=== PATIENT | male | born 1955 | race Caucasian/White ===

== ENCOUNTER 2020-01-30 09:40 | Inpatient (IN) | payer BC ==
[2020-01-30] VITALS (10 sets, daily range): BP systolic 116–133; BP diastolic 65–79
[~2020-01-30 09:40] MED LIST: RINGERS SOLUTION,LACTATED 1,000 ML IV ONE
[2020-01-30] MEDS ORDERED: BACITRACIN 50,000 UNITS/VIAL ONE (10:06)
[2020-01-30] MEDS ORDERED: FentaNYL CITRATE-PF 100 MCG/2 ML VIAL IVP PRN ×3 (10:15→12:45)
[2020-01-30] MEDS ORDERED: HYDROmorphone 2 MG/ML SYRINGE IVP PRN ×3 (10:15→14:45)
[2020-01-30] MEDS ORDERED: MEPERIDINE-PF 25 MG/ML VIAL IVP PRN (10:15)
[2020-01-30 10:31] LABS: INR 1.1 (0.9-1.1); PROTHROMBIN TIME 11.2 SEC (9.4-11.6)
[2020-01-30 10:32] LABS: GLUCOMETER DEV NAME(LOC) SDS.; GLUCOSE,POINT OF CARE 135 MG/DL (70-110)
[2020-01-30] MEDS ORDERED: MELA5TAB3 PO (10:46)
[2020-01-30] MEDS ORDERED: THIA100T80 PO (10:46)
[2020-01-30] MEDS ORDERED: ASCO500 PO (10:46)
[2020-01-30] MEDS ORDERED: MULT-248 PO (10:46)
[2020-01-30] MEDS ORDERED: ESCI-8 PO (10:46)
[2020-01-30] MEDS ORDERED: FOLI-130 PO (10:46)
[2020-01-30] MEDS ORDERED: FAMO20 PO (10:46)
[2020-01-30] MEDS ORDERED: ENOX40DI9 SQ (10:46)
[2020-01-30] MEDS ORDERED: ZINC220C14 PO (10:46)
[2020-01-30] MEDS ORDERED: DOCU-275 PO (10:46)
[2020-01-30] MEDS ORDERED: INSU100V39 SQ (10:46)
[2020-01-30] MEDS ORDERED: ONDA-104 PO (10:46)
[2020-01-30] MEDS ORDERED: CHOL100018 PO (10:46)
[2020-01-30] MEDS ORDERED: INSLAN SQ (10:46)
[2020-01-30] MEDS ORDERED: BUPIVACAINE LIPOSOME/PF 1.3%-13.3MG/ML SUSPENSION 20 ML VIAL INJ ONE (11:15)
[2020-01-30] MEDS ORDERED: BUPIVACAINE HCL/PF 0.25% 30 ML VIAL ONE (11:46)
[2020-01-30] MEDS ORDERED: GELATIN SPONGE,ABSORBABLE 100 MM TP ONE (12:18)
[2020-01-30] MEDS ORDERED: EPINEPHrine 1:1,000 [1 MG/ML] AMP ONE (12:26)
[2020-01-30] MEDS ORDERED: GELATIN SPONGE,ABSORBABLE 50 MM TP ONE (12:26)
[2020-01-30] MEDS ORDERED: LIDOCAINE 1%/EPI 1:200,000/PF 30 ML VIAL ONE (12:28)
[2020-01-30] MEDS ORDERED: LIDOCAINE 2%/EPI 1:200,000/PF 20 ML VIAL ONE (12:28)
[2020-01-30] MEDS ORDERED: SODIUM CHLORIDE 0.9% 1,000 ML ONE (12:52)
[2020-01-30] MEDS ORDERED: RINGERS SOLUTION,LACTATED 1,000 ML IV ONE (12:52)
[2020-01-30] MEDS ORDERED: TRANEXAMIC ACID 1,000 MG in DEXTROSE 5%-WATER 50 ML IV ONE (13:00)
[2020-01-30] MEDS ORDERED: SUGAMMADEX SODIUM 200 MG/2 ML VIAL IVP ONE (13:15)
[2020-01-30] MEDS ORDERED: OxyCODONE HCL/ACETAMINOPHEN 5-325 MG TABLET PO PRN (14:45)
[2020-01-30] MEDS ORDERED: ACETAMINOPHEN 325 MG TABLET PO PRN (18:00)
[2020-01-30] MEDS ORDERED: MORPHINE SULFATE 2 MG/ML SYRINGE IVP PRN (18:00)
[2020-01-30] MEDS ORDERED: DEXTROSE 50%-WATER 25 GM/50 ML SYRINGE IVP PRN (18:00)
[2020-01-30] MEDS ORDERED: OXYGEN THERAPY IH SCH (20:00)
[2020-01-30] MEDS: FAMOTIDINE 10 MG/ML 2 ML VIAL IVP SCH (20:26)
[2020-01-30] MEDS: OXYGEN THERAPY IH SCH (20:26)
[2020-01-30] MEDS: INSULIN LISPRO 100 UNITS/ML SQ PRN (20:38)
[2020-01-30] MEDS: DOCUSATE SODIUM 100 MG CAPSULE PO SCH (21:00)
[2020-01-30] MEDS ORDERED: SODIUM CHLORIDE 0.9% 500 ML IV ONE (21:25)
[2020-01-30] MEDS: CeFAZolin 2 GM/DEXTROSE 50 ML IV SCH (21:30)
[2020-01-30 22:59] LABS: BASOPHILS % (AUTO) 0.3 % (0.0-2.0); EOSINOPHILS % (AUTO) 1.2 % (1.0-6.0); HEMATOCRIT 34.4 % (41-53); LYMPHOCYTES # (AUTO) 1.5 K/uL (1.0-4.8); MEAN CORPUSCULAR HEMOGLOBIN 27.2 pg (26.0-34.0); MEAN CORPUSCULAR VOLUME 85 fL (80-100); MONOCYTES # (AUTO) 0.9 K/uL (0.1-1.0); MONOCYTES % (AUTO) 7.5 % (2.0-9.0); NEUTROPHILS # (AUTO) 8.9 K/uL (1.8-7.7); PLATELET COUNT (AUTO) 320 K/uL (150-450); RED BLOOD CELL COUNT(AUTO) 4.05 MIL/uL (4.50-5.90)
[2020-01-30 23:12] LABS: GLUCOMETER DEV NAME(LOC) 6S.1; GLUCOSE,POINT OF CARE 144 MG/DL (70-110)
[2020-01-31] MEDS: OxyCODONE HCL/ACETAMINOPHEN 5-325 MG TABLET PO PRN ×2 (03:43→21:34)
[2020-01-31 04:48] VITALS: BP 100/60
[2020-01-31] MEDS: CeFAZolin 2 GM/DEXTROSE 50 ML IV SCH ×3 (06:04→21:03)
[2020-01-31] MEDS ORDERED: PROPOFOL 1% 20 ML VIAL IVP ONE (06:25)
[2020-01-31] MEDS ORDERED: MIDAZOLAM HCL 2 MG/2 ML VIAL IVP ONE (06:25)
[2020-01-31] MEDS ORDERED: METOCLOPRAMIDE HCL 5 MG/ML 2 ML VIAL IVP ONE (06:25)
[2020-01-31] MEDS ORDERED: ROCURONIUM BROMIDE 10 MG/ML 5 ML VIAL IVP ONE (06:25)
[2020-01-31] MEDS ORDERED: FentaNYL CITRATE-PF 100 MCG/2 ML VIAL IVP ONE (06:25)
[2020-01-31] MEDS ORDERED: ONDANSETRON HCL 4 MG/2 ML VIAL IVP ONE (06:25)
[2020-01-31] MEDS ORDERED: LIDOCAINE/PF 2% 5 ML VIAL IM ONE (06:25)
[2020-01-31 06:43] LABS: BASOPHILS % (AUTO) 0.2 % (0.0-2.0); EOSINOPHILS % (AUTO) 0.8 % (1.0-6.0); HEMATOCRIT 32.5 % (41-53); HEMOGLOBIN 10.9 g/dL (13.5-17.5); LYMPHOCYTES # (AUTO) 1.6 K/uL (1.0-4.8); LYMPHOCYTES % (AUTO) 14.5 % (22.0-44.0); MEAN CORPUSCULAR HEMOGLOBIN 28.1 pg (26.0-34.0); MEAN CORPUSCULAR HGB CONC 33.4 G/dL (31.0-37.0); MEAN CORPUSCULAR VOLUME 84 fL (80-100); MONOCYTES # (AUTO) 0.8 K/uL (0.1-1.0); MONOCYTES % (AUTO) 7.6 % (2.0-9.0); NEUTROPHILS # (AUTO) 8.3 K/uL (1.8-7.7); NEUTROPHILS % (AUTO) 76.9 % (40.0-70.0); PLATELET COUNT (AUTO) 324 K/uL (150-450); RED BLOOD CELL COUNT(AUTO) 3.86 MIL/uL (4.50-5.90)
[2020-01-31 06:53] LABS: GLUCOMETER DEV NAME(LOC) 6S.1; GLUCOSE,POINT OF CARE 128 MG/DL (70-110)
[2020-01-31 07:10] LABS: ALANINE AMINOTRANSFERASE 9 U/L (12-78); ALBUMIN 2.1 g/dL (3.4-5.0); ALKALINE PHOSPHATASE 77 U/L (46-116); ANION GAP 6 mmol/L (8-16); ASPARTATE AMINOTRANSFERASE 10 U/L (15-37); BILIRUBIN,TOTAL 0.4 mg/dL (0.1-1.0); CALCIUM, TOTAL 8.4 mg/dL (8.8-10.5); CARBON DIOXIDE 27 mmol/L (22-29); CHLORIDE 105 mmol/L (98-107); CREATININE 0.62 mg/dL (0.60-1.30); GLOMERULAR FILTR. RATE CALC > 60 mL/min (>60); GLUCOSE,RANDOM 117 mg/dL (70-110); POTASSIUM 3.6 mmol/L (3.5-5.1); SODIUM SERUM 138 mmol/L (136-145); TOTAL PROTEIN, SERUM 6.2 g/dL (6.4-8.2); UREA NITROGEN, BLOOD 7 mg/dL (7-18)
[2020-01-31] MEDS: OXYGEN THERAPY IH SCH ×2 (08:00→20:42)
[2020-01-31 08:59] VITALS: BP 118/60
[2020-01-31] MEDS: DOCUSATE SODIUM 100 MG CAPSULE PO SCH ×2 (09:00→20:47)
[2020-01-31] MEDS: MULTIVITAMINS WITH MINERALS, THERAPEUTIC TABLET PO SCH (09:25)
[2020-01-31] MEDS: FAMOTIDINE 10 MG/ML 2 ML VIAL IVP SCH ×2 (09:25→20:43)
[2020-01-31] MEDS: INSULIN LISPRO 100 UNITS/ML SQ PRN ×2 (11:51→17:00)
[2020-01-31 13:14] LABS: APPEARANCE,URINE CLEAR (CLEAR); BILIRUBIN,URINE NEGATIVE (NEGATIVE); GLUCOSE, URINE (UA) NEGATIVE (NEGATIVE); KETONES,URINE NEGATIVE (NEGATIVE); LEUKOCYTE ESTERASE ,URINE NEGATIVE (NEGATIVE); NITRATE,URINE NEGATIVE (NEGATIVE); OCCULT BLOOD,URINE NEGATIVE (NEGATIVE); PROTEIN,URINE NEGATIVE (NEGATIVE); UROBILINOGEN,URINE 0.2 mg/dL (<=1.0)
[2020-01-31 15:06] LABS: GLUCOMETER DEV NAME(LOC) 6N.2; GLUCOSE,POINT OF CARE 214 MG/DL (70-110)
[2020-01-31 16:02] VITALS: BP 115/64
[2020-01-31 19:25] VITALS: BP 110/65
[2020-01-31 21:18] LABS: GLUCOMETER DEV NAME(LOC) 6N.2; GLUCOSE,POINT OF CARE 137 MG/DL (70-110)
[2020-01-31 23:59] VITALS: BP 116/68
[2020-02-01 02:03] LABS: GLUCOMETER DEV NAME(LOC) 6S.1; GLUCOSE,POINT OF CARE 138 MG/DL (70-110)
[2020-02-01 04:20] VITALS: BP 106/57
[2020-02-01] MEDS: CeFAZolin 2 GM/DEXTROSE 50 ML IV SCH ×3 (07:06→20:07)
[2020-02-01] MEDS: INSULIN LISPRO 100 UNITS/ML SQ PRN ×3 (07:07→18:10)
[2020-02-01] MEDS: OXYGEN THERAPY IH SCH ×2 (08:00→20:33)
[2020-02-01] MEDS: MULTIVITAMINS WITH MINERALS, THERAPEUTIC TABLET PO SCH (08:40)
[2020-02-01] MEDS: ASCORBIC ACID 500 MG TABLET PO SCH (08:41)
[2020-02-01 08:44] VITALS: BP 126/65
[2020-02-01] MEDS: FAMOTIDINE 10 MG/ML 2 ML VIAL IVP SCH ×2 (08:47→20:07)
[2020-02-01] MEDS: DOCUSATE SODIUM 100 MG CAPSULE PO SCH ×2 (09:00→20:33)
[2020-02-01 10:12] LABS: BASOPHILS % (AUTO) 1.4 % (0.0-2.0); EOSINOPHILS % (AUTO) 3.6 % (1.0-6.0); HEMATOCRIT 33.6 % (41-53); LYMPHOCYTES # (AUTO) 1.2 K/uL (1.0-4.8); LYMPHOCYTES % (AUTO) 11.8 % (22.0-44.0); MEAN CORPUSCULAR HEMOGLOBIN 27.7 pg (26.0-34.0); MEAN CORPUSCULAR HGB CONC 32.9 G/dL (31.0-37.0); MEAN CORPUSCULAR VOLUME 84 fL (80-100); MONOCYTES # (AUTO) 0.8 K/uL (0.1-1.0); MONOCYTES % (AUTO) 7.6 % (2.0-9.0); NEUTROPHILS # (AUTO) 7.7 K/uL (1.8-7.7); NEUTROPHILS % (AUTO) 75.6 % (40.0-70.0); PLATELET COUNT (AUTO) 306 K/uL (150-450); RED BLOOD CELL COUNT(AUTO) 3.99 MIL/uL (4.50-5.90); RED CELL DISTRIBUTION WIDTH 16.4 % (11.5-14.5)
[2020-02-01 10:21] LABS: ANION GAP 5 mmol/L (8-16); CALCIUM, TOTAL 8.8 mg/dL (8.8-10.5); CARBON DIOXIDE 31 mmol/L (22-29); CHLORIDE 104 mmol/L (98-107); CREATININE 0.86 mg/dL (0.60-1.30); GLOMERULAR FILTR. RATE CALC > 60 mL/min (>60); GLUCOSE,RANDOM 142 mg/dL (70-110); POTASSIUM 3.6 mmol/L (3.5-5.1); SODIUM SERUM 140 mmol/L (136-145); UREA NITROGEN, BLOOD 7 mg/dL (7-18)
[2020-02-01 12:40] VITALS: BP 110/63
[2020-02-01 14:01] LABS: GLUCOMETER DEV NAME(LOC) 6N.2; GLUCOSE,POINT OF CARE 149 MG/DL (70-110)
[2020-02-01 14:01] LABS: GLUCOMETER DEV NAME(LOC) 6S.1; GLUCOSE,POINT OF CARE 155 MG/DL (70-110)
[2020-02-01] MEDS ORDERED: SODIUM CHLORIDE 0.9% 1,000 ML ONE (14:09)
[2020-02-01 16:02] VITALS: BP 120/65
[2020-02-01 19:00] LABS: GLUCOMETER DEV NAME(LOC) 6S.1; GLUCOSE,POINT OF CARE 161 MG/DL (70-110)
[2020-02-01 20:24] VITALS: BP 146/72
[2020-02-02] MEDS: OxyCODONE HCL/ACETAMINOPHEN 5-325 MG TABLET PO PRN (00:33)
[2020-02-02 00:35] VITALS: BP 125/57
[2020-02-02 05:20] LABS: GLUCOMETER DEV NAME(LOC) 6N.2; GLUCOSE,POINT OF CARE 155 MG/DL (70-110)
[2020-02-02] MEDS: CeFAZolin 2 GM/DEXTROSE 50 ML IV SCH ×3 (05:35→22:08)
[2020-02-02 06:05] VITALS: BP 117/64
[2020-02-02] MEDS: OXYGEN THERAPY IH SCH ×2 (08:00→20:08)
[2020-02-02] MEDS: MULTIVITAMINS WITH MINERALS, THERAPEUTIC TABLET PO SCH (08:04)
[2020-02-02] MEDS: DOCUSATE SODIUM 100 MG CAPSULE PO SCH ×2 (08:04→20:08)
[2020-02-02] MEDS: ASCORBIC ACID 500 MG TABLET PO SCH (08:04)
[2020-02-02] MEDS: FAMOTIDINE 10 MG/ML 2 ML VIAL IVP SCH ×2 (08:05→20:08)
[2020-02-02 08:31] VITALS: BP 129/70
[2020-02-02 09:24] LABS: GLUCOMETER DEV NAME(LOC) 6S.1; GLUCOSE,POINT OF CARE 145 MG/DL (70-110)
[2020-02-02 11:50] VITALS: BP 110/66
[2020-02-02] MEDS: INSULIN LISPRO 100 UNITS/ML SQ PRN ×3 (12:05→20:15)
[2020-02-02 16:28] VITALS: BP 121/63
[2020-02-02 20:01] VITALS: BP 121/69
[2020-02-03 00:19] VITALS: BP 115/65
[2020-02-03 01:32] LABS: GLUCOMETER DEV NAME(LOC) 6S.1; GLUCOSE,POINT OF CARE 158 MG/DL (70-110)
[2020-02-03 01:32] LABS: GLUCOMETER DEV NAME(LOC) 6S.1; GLUCOSE,POINT OF CARE 162 MG/DL (70-110)
[2020-02-03 01:32] LABS: GLUCOMETER DEV NAME(LOC) 6S.1; GLUCOSE,POINT OF CARE 205 MG/DL (70-110)
[2020-02-03 05:10] VITALS: BP 111/67
[2020-02-03 06:05] LABS: BASOPHILS % (AUTO) 0.5 % (0.0-2.0); EOSINOPHILS % (AUTO) 4.5 % (1.0-6.0); HEMATOCRIT 34.4 % (41-53); HEMOGLOBIN 11.5 g/dL (13.5-17.5); LYMPHOCYTES # (AUTO) 1.8 K/uL (1.0-4.8); LYMPHOCYTES % (AUTO) 20.2 % (22.0-44.0); MEAN CORPUSCULAR HEMOGLOBIN 28.2 pg (26.0-34.0); MEAN CORPUSCULAR HGB CONC 33.4 G/dL (31.0-37.0); MEAN CORPUSCULAR VOLUME 84 fL (80-100); MONOCYTES # (AUTO) 0.8 K/uL (0.1-1.0); MONOCYTES % (AUTO) 8.7 % (2.0-9.0); NEUTROPHILS % (AUTO) 66.1 % (40.0-70.0); PLATELET COUNT (AUTO) 342 K/uL (150-450); RED BLOOD CELL COUNT(AUTO) 4.07 MIL/uL (4.50-5.90); RED CELL DISTRIBUTION WIDTH 15.7 % (11.5-14.5)
[2020-02-03] MEDS: CeFAZolin 2 GM/DEXTROSE 50 ML IV SCH ×3 (06:08→21:39)
[2020-02-03] MEDS: INSULIN LISPRO 100 UNITS/ML SQ PRN ×3 (06:16→17:23)
[2020-02-03 06:44] LABS: ANION GAP 10 mmol/L (8-16); CALCIUM, TOTAL 8.8 mg/dL (8.8-10.5); CARBON DIOXIDE 26 mmol/L (22-29); CHLORIDE 105 mmol/L (98-107); CREATININE 0.67 mg/dL (0.60-1.30); GLOMERULAR FILTR. RATE CALC > 60 mL/min (>60); GLUCOSE,RANDOM 147 mg/dL (70-110); POTASSIUM 3.4 mmol/L (3.5-5.1); SODIUM SERUM 141 mmol/L (136-145); UREA NITROGEN, BLOOD 6 mg/dL (7-18)
[2020-02-03 06:54] LABS: GLUCOMETER DEV NAME(LOC) 6S.1; GLUCOSE,POINT OF CARE 144 MG/DL (70-110)
[2020-02-03] MEDS: OXYGEN THERAPY IH SCH ×2 (08:00→20:54)
[2020-02-03 08:26] VITALS: BP 101/60
[2020-02-03] MEDS: MULTIVITAMINS WITH MINERALS, THERAPEUTIC TABLET PO SCH (08:43)
[2020-02-03] MEDS: ZINC SULFATE 220 MG CAPSULE PO SCH (08:44)
[2020-02-03] MEDS: FAMOTIDINE 10 MG/ML 2 ML VIAL IVP SCH ×2 (08:51→21:37)
[2020-02-03] MEDS: ASCORBIC ACID 500 MG TABLET PO SCH (08:58)
[2020-02-03] MEDS: DOCUSATE SODIUM 100 MG CAPSULE PO SCH ×2 (09:00→21:00)
[2020-02-03] MEDS ORDERED: POTASSIUM CHLORIDE 20 MEQ ER TABLET PO ONE (10:15)
[2020-02-03 10:35] LABS: COVID AG,FIA SOURCE NASAL SWAB
[2020-02-03 11:46] VITALS: BP 124/70
[2020-02-03 14:13] LABS: GLUCOMETER DEV NAME(LOC) 6S.1; GLUCOSE,POINT OF CARE 197 MG/DL (70-110)
[2020-02-03 18:51] LABS: GLUCOMETER DEV NAME(LOC) 6N.2; GLUCOSE,POINT OF CARE 167 MG/DL (70-110)
[2020-02-03 20:59] VITALS: BP 122/66
[2020-02-03 22:58] LABS: GLUCOMETER DEV NAME(LOC) 6N.2; GLUCOSE,POINT OF CARE 160 MG/DL (70-110)
[2020-02-04] MEDS ORDERED: SODIUM CHLORIDE 0.9% 250 ML IV ONE (05:00)
[2020-02-04] MEDS: CeFAZolin 2 GM/DEXTROSE 50 ML IV SCH ×3 (05:37→21:17)
[2020-02-04] MEDS: INSULIN LISPRO 100 UNITS/ML SQ PRN ×4 (06:13→21:29)
[2020-02-04 07:01] LABS: GLUCOMETER DEV NAME(LOC) 6S.1; GLUCOSE,POINT OF CARE 179 MG/DL (70-110)
[2020-02-04] MEDS: FAMOTIDINE 10 MG/ML 2 ML VIAL IVP SCH ×2 (07:50→21:16)
[2020-02-04] MEDS: ASCORBIC ACID 500 MG TABLET PO SCH (07:50)
[2020-02-04] MEDS: MULTIVITAMINS WITH MINERALS, THERAPEUTIC TABLET PO SCH (07:50)
[2020-02-04] MEDS: ZINC SULFATE 220 MG CAPSULE PO SCH (07:50)
[2020-02-04] MEDS: DOCUSATE SODIUM 100 MG CAPSULE PO SCH ×2 (07:50→21:16)
[2020-02-04 08:00] VITALS: BP 123/74
[2020-02-04] MEDS: OXYGEN THERAPY IH SCH ×2 (08:00→20:00)
[2020-02-04 11:46] VITALS: BP 127/73
[2020-02-04 13:07] LABS: GLUCOMETER DEV NAME(LOC) 6S.1; GLUCOSE,POINT OF CARE 204 MG/DL (70-110)
[2020-02-04 16:15] VITALS: BP 112/74
[2020-02-04 18:24] LABS: GLUCOMETER DEV NAME(LOC) 6N.2; GLUCOSE,POINT OF CARE 175 MG/DL (70-110)
[2020-02-04 19:37] VITALS: BP 120/71
[2020-02-04 22:47] LABS: GLUCOMETER DEV NAME(LOC) 6N.2; GLUCOSE,POINT OF CARE 191 MG/DL (70-110)
[2020-02-05] VITALS (7 sets, daily range): BP systolic 117–132; BP diastolic 66–77
[2020-02-05] MEDS ORDERED: SODIUM CHLORIDE 0.9% 250 ML IV ONE ×2 (04:32→21:45)
[2020-02-05] MEDS: CeFAZolin 2 GM/DEXTROSE 50 ML IV SCH ×3 (05:08→21:46)
[2020-02-05] MEDS: INSULIN LISPRO 100 UNITS/ML SQ PRN ×4 (06:13→20:43)
[2020-02-05] MEDS: OXYGEN THERAPY IH SCH ×2 (08:00→20:00)
[2020-02-05] MEDS: DOCUSATE SODIUM 100 MG CAPSULE PO SCH ×2 (08:08→20:33)
[2020-02-05] MEDS: MULTIVITAMINS WITH MINERALS, THERAPEUTIC TABLET PO SCH (08:08)
[2020-02-05] MEDS: ASCORBIC ACID 500 MG TABLET PO SCH (08:08)
[2020-02-05] MEDS: ZINC SULFATE 220 MG CAPSULE PO SCH (08:08)
[2020-02-05] MEDS: FAMOTIDINE 10 MG/ML 2 ML VIAL IVP SCH ×2 (08:09→20:33)
[2020-02-05 09:54] LABS: GLUCOMETER DEV NAME(LOC) 6N.2; GLUCOSE,POINT OF CARE 174 MG/DL (70-110)
[2020-02-05 16:48] LABS: GLUCOMETER DEV NAME(LOC) 6N.2; GLUCOSE,POINT OF CARE 196 MG/DL (70-110)
[2020-02-05 18:56] LABS: GLUCOMETER DEV NAME(LOC) 6N.2; GLUCOSE,POINT OF CARE 178 MG/DL (70-110)
[2020-02-06 04:16] VITALS: BP 108/90
[2020-02-06] MEDS: CeFAZolin 2 GM/DEXTROSE 50 ML IV SCH ×2 (05:44→15:29)
[2020-02-06] MEDS: INSULIN LISPRO 100 UNITS/ML SQ PRN ×2 (05:49→12:28)
[2020-02-06 06:11] LABS: BASOPHILS % (AUTO) 0.5 % (0.0-2.0); EOSINOPHILS % (AUTO) 4.1 % (1.0-6.0); HEMATOCRIT 34.1 % (41-53); HEMOGLOBIN 11.6 g/dL (13.5-17.5); LYMPHOCYTES # (AUTO) 1.8 K/uL (1.0-4.8); LYMPHOCYTES % (AUTO) 20.6 % (22.0-44.0); MEAN CORPUSCULAR HEMOGLOBIN 28.8 pg (26.0-34.0); MEAN CORPUSCULAR HGB CONC 34.2 G/dL (31.0-37.0); MEAN CORPUSCULAR VOLUME 84 fL (80-100); MONOCYTES # (AUTO) 0.7 K/uL (0.1-1.0); MONOCYTES % (AUTO) 8.2 % (2.0-9.0); NEUTROPHILS # (AUTO) 5.7 K/uL (1.8-7.7); NEUTROPHILS % (AUTO) 66.6 % (40.0-70.0); PLATELET COUNT (AUTO) 362 K/uL (150-450); RED BLOOD CELL COUNT(AUTO) 4.05 MIL/uL (4.50-5.90); RED CELL DISTRIBUTION WIDTH 15.7 % (11.5-14.5)
[2020-02-06 06:28] LABS: ANION GAP 6 mmol/L (8-16); CARBON DIOXIDE 29 mmol/L (22-29); CHLORIDE 104 mmol/L (98-107); CREATININE 0.77 mg/dL (0.60-1.30); GLOMERULAR FILTR. RATE CALC > 60 mL/min (>60); GLUCOSE,RANDOM 193 mg/dL (70-110); POTASSIUM 3.8 mmol/L (3.5-5.1); SODIUM SERUM 139 mmol/L (136-145); UREA NITROGEN, BLOOD 8 mg/dL (7-18)
[2020-02-06 07:37] LABS: GLUCOMETER DEV NAME(LOC) 6N.2; GLUCOSE,POINT OF CARE 186 MG/DL (70-110)
[2020-02-06 07:37] LABS: GLUCOMETER DEV NAME(LOC) 6N.2; GLUCOSE,POINT OF CARE 163 MG/DL (70-110)
[2020-02-06] MEDS: OXYGEN THERAPY IH SCH (08:00)
[2020-02-06 08:02] VITALS: BP 122/70
[2020-02-06] MEDS: MULTIVITAMINS WITH MINERALS, THERAPEUTIC TABLET PO SCH (08:19)
[2020-02-06] MEDS: FAMOTIDINE 10 MG/ML 2 ML VIAL IVP SCH (08:19)
[2020-02-06] MEDS: ZINC SULFATE 220 MG CAPSULE PO SCH (08:19)
[2020-02-06] MEDS: ASCORBIC ACID 500 MG TABLET PO SCH (08:20)
[2020-02-06] MEDS: DOCUSATE SODIUM 100 MG CAPSULE PO SCH (08:20)
[2020-02-06] MEDS ORDERED: SODIUM CHLORIDE 0.9% IRRIG BTL 1,000 ML IRRIG ONE (09:53)
[2020-02-06 11:20] VITALS: BP 113/67
[2020-02-06 15:07] LABS: GLUCOMETER DEV NAME(LOC) 6S.1; GLUCOSE,POINT OF CARE 187 MG/DL (70-110)
== END 2020-02-06 16:14 | DRG 580 ==
LOC: 6S 09:40
PROVIDERS: ADMIT Surgery Plastic and Reconstructive Surgery; ATTEND Surgery Plastic and Reconstructive Surgery
PROC: 0JXC0ZZ Transfer Pelvic Region Subcutaneous Tissue and Fascia, Open Approach (ICD-10-PCS; 2020-01-30)
PROC: 0QB10ZX Excision of Sacrum, Open Approach, Diagnostic (ICD-10-PCS; 2020-01-30)
PROC: 30233N1 Transfusion of Nonautologous Red Blood Cells into Peripheral Vein, Percutaneous Approach (ICD-10-PCS; 2020-01-30)
PROC: 0QB10ZZ Excision of Sacrum, Open Approach (ICD-10-PCS; principal; 2020-01-30 11:30)
DX: L89.154 Pressure ulcer of sacral region, stage 4 (principal); G82.20 Paraplegia, unspecified; E11.40 Type 2 diabetes mellitus with diabetic neuropathy, unspecified; D63.8 Anemia in other chronic diseases classified elsewhere; Z79.4 Long term (current) use of insulin; Z20.828 Contact with and (suspected) exposure to other viral communicable diseases
CPT/HCPCS: 83036; 86850; 86900; 86901; 86923; 87070; 87081; 87205; 87426; 88307; 88311; 93005; C9290; G0238; J0171; J0690; J2250; J2405; J2704; J2765; J3010; J3490; J7030; J7040; J7050; J7060; J7120; P9016